=== PATIENT | female | born 1990 | race Caucasian/White ===

== ENCOUNTER 2021-10-18 10:22 | Emergency (ER) | payer BC ==
[2021-10-18 10:58] LABS: HEMOGLOBIN 13.3 gm/dl (12.3-15.3); RED BLOOD COUNT 4.03 M/UL (4.00-5.10); WHITE BLOOD COUNT 8.8 K/UL (4.5-11.0)
[2021-10-18 11:21] LABS: BUN/CREATININE RATIO 12 (0-10)
[2021-10-18] MEDS ORDERED: TORADOL 10 MG T10 MG PO (12:30)
[2021-10-18] MEDS ORDERED: FLOMAX 0.4 MG0.4 MG PO (12:30)
[2021-10-18] MEDS ORDERED: ZOFRAN4 MG PO (12:30)
[2021-10-18] MEDS ORDERED: OMNICEF 300 MG300 MG PO (12:30)
== END 2021-10-18 12:57 | disposition home or self-care (01) ==
LOC: ER1 10:22
PROVIDERS: Physician Assistant
DX: N13.2 Hydronephrosis with renal and ureteral calculous obstruction (principal)
CPT/HCPCS: 80053; 81001; 84703; 85025; 87077; 87086; 87186; 96374; 96375; 99284; J0696; J1885; J2270; J2405